=== PATIENT | female | born 1935 | race Caucasian/White ===

== ENCOUNTER 2021-09-25 08:40 | Inpatient (IN) ==
[2021-09-25] MEDS ORDERED: Nitroglycerin 1 INCH/GM PACKET TP ONE (09:13)
[2021-09-25 09:57] LABS: Basophils # 0.1 K/mcL (0.0-0.2); Basophils % 0.6 %; Eosinophils # 0.3 K/mcL (0.0-0.6); Eosinophils % 3.9 %; Hematocrit 38.8 % (35.3-44.9); Hemoglobin 12.8 g/dL (11.5-15.4); Immature Granulocytes % 0.2 % (0-4); Lymphocytes % 11.7 %; Mean Corpuscular Hemoglobin 30.3 pg (28.0-33.3); Mean Corpuscular Volume 91.9 fL (83.0-100.0); Mean Platelet Volume 10.3 fL (9.4-12.4); Monocytes # 0.6 K/mcL (0.0-1.3); Monocytes % 7.7 %; Neutrophils # 6.2 K/mcL (1.6-8.9); Platelet Count 168 K/mcL (140-400); Red Blood Count 4.22 M/mcL (3.82-4.97); Red Cell Distribution Width 13.1 % (11.5-14.5); Segmented Neutrophils % 75.9 %; White Blood Count 8.2 K/mcL (4.3-11.1)
[2021-09-25 10:19] LABS: Calcium 10.1 mg/dL (8.6-10.3); Potassium 3.5 mEq/L (3.5-5.1); Troponin I 2.01 ng/mL (< 0.04)
[2021-09-25] MEDS ORDERED: *HR* Heparin 5,000 UNIT/ML VIAL IVP ONE (10:47)
[2021-09-25] MEDS ORDERED: *HR* Heparin 5,000 UNIT/ML VIAL IVP PRN ×2 (10:47)
[2021-09-25] MEDS ORDERED: Heparin 25,000UNIT/250ML 1/2NS 25,000 UNIT/250 ML IV.SOLN IVC SCH (11:00)
[2021-09-25 11:31] LABS: Heparin anti-factor XA UFH < 0.04 IU/mL (0.30-0.70); INR 1.1; Prothrombin Time 12.3 Seconds (9.4-12.1)
[2021-09-25] MEDS ORDERED: Acetaminophen 325 MG TABLET PO PRN (11:43)
[2021-09-25] MEDS ORDERED: Naloxone 0.4 MG/ML INJ IVP PRN (11:43)
[2021-09-25] MEDS ORDERED: Aspirin Enteric Coated 325 MG Tablet PO ONE (13:21)
[2021-09-25] MEDS ORDERED: Perflutren Lipid Microsphere 1.3 ML in 0.9 % Sodium Chloride 8.7 ML IVP PRN ×2 (13:46→13:47)
[2021-09-25] MEDS ORDERED: *HR* FentaNYL (PF) 100 MCG/2 ML VIAL ONE ×2 (14:38→19:22)
[2021-09-25] MEDS ORDERED: *HR* Midazolam HCl 2 MG/2 ML VIAL ONE (14:38)
[2021-09-25] MEDS ORDERED: *HR* Ticagrelor 90 MG TABLET ONE (15:00)
[2021-09-25] MEDS ORDERED: *HR* Bivalirudin 250 MG VIAL IVC ONE (15:01)
[2021-09-25] MEDS ORDERED: 0.9 % Sodium Chloride 2,000 ML ONE (15:33)
[2021-09-25] MEDS ORDERED: Heparin 1,000 UNITS/500 mL 500 ML ONE (15:34)
[2021-09-25] MEDS ORDERED: Nitroglycerin 1,000 MCG/5 ML VIAL IV ONE (15:34)
[2021-09-25] MEDS ORDERED: Iopamidol - 370 200 ML INFUS..BTL ONE (15:34)
[2021-09-25] MEDS ORDERED: *HR* Heparin 10,000 UNIT/10 ML VIAL ONE (15:34)
[2021-09-25] MEDS ORDERED: Nitroglycerin 0.4 MG TAB.SUBL SL PRN (15:44)
[2021-09-25] MEDS ORDERED: 0.9 % Sodium Chloride 1,000 ML IVC SCH (15:45)
[2021-09-25] MEDS: *HR* Ticagrelor 90 MG TABLET PO SCH (20:45)
[2021-09-25] MEDS: Metoprolol XL (24 HR) Succ 25 MG TAB.ER.24H PO SCH (20:45)
[2021-09-25] MEDS ORDERED: *HR* Metoprolol 5 MG/5 ML VIAL IVP ONE (21:49)
[2021-09-26 02:37] LABS: Basophils % 0.6 %; Eosinophils # 0.3 K/mcL (0.0-0.6); Eosinophils % 4.8 %; Hematocrit 35.2 % (35.3-44.9); Hemoglobin 11.6 g/dL (11.5-15.4); Immature Granulocytes % 0.3 % (0-4); Lymphocytes # 0.8 K/mcL (0.6-4.6); Lymphocytes % 12.6 %; Mean Corpuscular Hemoglobin 29.8 pg (28.0-33.3); Mean Corpuscular Volume 90.5 fL (83.0-100.0); Mean Platelet Volume 10.7 fL (9.4-12.4); Monocytes # 0.7 K/mcL (0.0-1.3); Monocytes % 10.9 %; Neutrophils # 4.6 K/mcL (1.6-8.9); Platelet Count 170 K/mcL (140-400); Red Blood Count 3.89 M/mcL (3.82-4.97); Segmented Neutrophils % 70.8 %; White Blood Count 6.5 K/mcL (4.3-11.1)
[2021-09-26 03:07] LABS: BUN/Creatinine Ratio 11 (6-26); Blood Urea Nitrogen 10 mg/dL (8-23); Calcium 9.2 mg/dL (8.6-10.3); Carbon Dioxide 22 mEq/L (23-29); Chloride 106 mEq/L (98-107); Chol/HDL Ratio 2.4 (0-4.9); Cholesterol 107 mg/dL (< 200); Glucose 90 mg/dL (70-105); HDL Cholesterol 44 mg/dL (40-59); LDL Cholesterol,Calculated 37 mg/dL (< 100); Osmolality,Calculated 285 (280-300); Potassium 3.3 mEq/L (3.5-5.1); Sodium 138 mEq/L (136-145); Triglycerides 131 mg/dL (< 150); Troponin I 1.44 ng/mL (< 0.04); eGFR For African Americans > 60 (> 60); eGFR For Non-African Americans 57 (> 60)
[2021-09-26 03:09] LABS: Estimated Average Glucose 128 mg/dl; Hemoglobin A1C 6.1 %
[2021-09-26] MEDS: Aspirin Enteric Coated 81 MG Tablet PO SCH (08:17)
[2021-09-26] MEDS: *HR* Ticagrelor 90 MG TABLET PO SCH ×2 (08:17→20:49)
[2021-09-26] MEDS: Metoprolol XL (24 HR) Succ 25 MG TAB.ER.24H PO SCH (08:17)
[2021-09-26] MEDS: Multivit/Ca/Min/Fe/FA 1 TAB TABLET PO SCH (08:17)
[2021-09-26] MEDS ORDERED: Isosorbide MONOnitrate (24 HR) 60 MG TAB.ER.24H PO SCH (09:00)
[2021-09-26] MEDS ORDERED: amLODIPine 5 MG TABLET PO SCH (09:00)
[2021-09-26] MEDS ORDERED: Metoprolol XL (24 HR) Succ 25 MG TAB.ER.24H PO ONE (10:17)
[2021-09-26] MEDS: lisinopriL 5 MG TABLET PO SCH (11:01)
[2021-09-26] MEDS ORDERED: *HR* Enoxaparin 40 MG/0.4 ML SYRINGE SQ ONE (15:25)
[2021-09-26] MEDS ORDERED: *HR* Heparin 5,000 UNIT/ML VIAL SQ SCH (18:00)
[2021-09-27] MEDS ORDERED: Metoprolol XL (24 HR) Succ 25 MG TAB.ER.24H PO SCH (06:30)
[2021-09-27 07:11] VITALS: BP 159/34; PULSE 73; TEMP 97.9; O2SAT 98
[2021-09-27] MEDS: Aspirin Enteric Coated 81 MG Tablet PO SCH (08:44)
[2021-09-27] MEDS: lisinopriL 5 MG TABLET PO SCH (08:44)
[2021-09-27] MEDS: *HR* Ticagrelor 90 MG TABLET PO SCH (08:44)
[2021-09-27] MEDS: Multivit/Ca/Min/Fe/FA 1 TAB TABLET PO SCH (08:45)
[2021-09-27] MEDS ORDERED: lisinopriL 5 MG TABLET PO ONE (08:48)
[2021-09-28] MEDS ORDERED: lisinopriL 5 MG TABLET PO SCH (09:00)
== END 2021-09-27 10:00 | disposition home or self-care (01) | DRG 247 ==
LOC: EMEROOARM 08:40 → 2NENU 08:40 → SUATTDRO 19:03
PROVIDERS: ADMIT Internal Medicine; ATTEND Internal Medicine

== ENCOUNTER 2021-12-08 23:00 | Observation (INO) ==
[2021-12-09 02:38] LABS: Basophils # 0.1 K/mcL (0.0-0.2); Basophils % 0.7 %; Eosinophils # 0.4 K/mcL (0.0-0.6); Eosinophils % 4.9 %; Hematocrit 33.1 % (35.3-44.9); Hemoglobin 10.5 g/dL (11.5-15.4); Immature Granulocytes % 0.2 % (0-4); Lymphocytes # 1.4 K/mcL (0.6-4.6); Lymphocytes % 15.8 %; Mean Corpuscular HGB Conc 31.7 g/dL (31.6-35.5); Mean Corpuscular Hemoglobin 29.9 pg (28.0-33.3); Mean Corpuscular Volume 94.3 fL (83.0-100.0); Mean Platelet Volume 10.9 fL (9.4-12.4); Monocytes # 0.7 K/mcL (0.0-1.3); Monocytes % 8.4 %; Platelet Count 158 K/mcL (140-400); Red Blood Count 3.51 M/mcL (3.82-4.97); Red Cell Distribution Width 13.4 % (11.5-14.5); White Blood Count 8.6 K/mcL (4.3-11.1)
[2021-12-09 03:10] LABS: Calcium 9.5 mg/dL (8.6-10.3); Potassium 4.1 mEq/L (3.5-5.1); Troponin I 0.06 ng/mL (< 0.04)
[2021-12-09] MEDS ORDERED: Aspirin 325 MG TABLET PO ONE (03:12)
[2021-12-09] MEDS ORDERED: Nitroglycerin 0.4 MG TAB.SUBL SL PRN (03:12)
[2021-12-09] MEDS ORDERED: Naloxone 0.4 MG/ML INJ IVP PRN (06:05)
[2021-12-09] MEDS ORDERED: Ondansetron 4 MG/2 ML VIAL IVP PRN (06:05)
[2021-12-09 06:06] LABS: INR 1.1; Prothrombin Time 12.5 Seconds (9.4-12.1)
[2021-12-09] MEDS ORDERED: *HR* Ticagrelor 90 MG TABLET PO SCH (13:00)
[2021-12-09] MEDS: Metoprolol XL (24 HR) Succ 50 MG TAB.ER.24H PO SCH ×3 (13:17→13:52)
[2021-12-09] MEDS: lisinopriL 5 MG TABLET PO SCH (13:17)
[2021-12-09] MEDS: Aspirin Enteric Coated 81 MG Tablet PO SCH (13:17)
[2021-12-09] MEDS ORDERED: *HR* Heparin 5,000 UNIT/ML VIAL IVP PRN ×2 (13:46)
[2021-12-09] MEDS ORDERED: *HR* Heparin 5,000 UNIT/ML VIAL IVP ONE (13:46)
[2021-12-09] MEDS ORDERED: Heparin 25,000UNIT/250ML 1/2NS 25,000 UNIT/250 ML IV.SOLN IVC SCH (14:00)
[2021-12-09] MEDS ORDERED: Furosemide 20 MG/2 ML VIAL IVP ONE (14:15)
[2021-12-09 14:20] LABS: Hematocrit 37.3 % (35.3-44.9); Hemoglobin 11.8 g/dL (11.5-15.4); Mean Corpuscular HGB Conc 31.6 g/dL (31.6-35.5); Mean Corpuscular Hemoglobin 30.8 pg (28.0-33.3); Mean Corpuscular Volume 97.4 fL (83.0-100.0); Mean Platelet Volume 10.7 fL (9.4-12.4); Platelet Count 162 K/mcL (140-400); Red Blood Count 3.83 M/mcL (3.82-4.97); Red Cell Distribution Width 13.5 % (11.5-14.5); White Blood Count 7.3 K/mcL (4.3-11.1)
[2021-12-09 14:26] LABS: Heparin anti-factor XA UFH 0.07 IU/mL (0.30-0.70); INR 1.1
[2021-12-10 02:41] LABS: Basophils # 0.1 K/mcL (0.0-0.2); Basophils % 0.9 %; Eosinophils # 0.5 K/mcL (0.0-0.6); Eosinophils % 8.7 %; Hematocrit 31.8 % (35.3-44.9); Hemoglobin 10.2 g/dL (11.5-15.4); Immature Granulocytes % 0.2 % (0-4); Lymphocytes # 1.2 K/mcL (0.6-4.6); Lymphocytes % 20.8 %; Mean Corpuscular HGB Conc 32.1 g/dL (31.6-35.5); Mean Corpuscular Volume 93.5 fL (83.0-100.0); Mean Platelet Volume 10.7 fL (9.4-12.4); Monocytes # 0.7 K/mcL (0.0-1.3); Monocytes % 12.2 %; Neutrophils # 3.3 K/mcL (1.6-8.9); Platelet Count 154 K/mcL (140-400); Red Cell Distribution Width 13.3 % (11.5-14.5); Segmented Neutrophils % 57.2 %; White Blood Count 5.7 K/mcL (4.3-11.1)
[2021-12-10 03:02] LABS: Albumin 3.8 g/dL (3.5-5.7); Albumin/Globulin Ratio 1.5 (1.1-2.2); Bilirubin,Total 0.8 mg/dL (0.3-1.0); Calcium 9.1 mg/dL (8.6-10.3); Globulin 2.6 g/dL (2.4-3.5); Potassium 3.7 mEq/L (3.5-5.1); Total Protein 6.4 g/dL (6.4-8.9)
[2021-12-10 03:08] LABS: Thyroid Stimulating Hormone 4.366 mcIU/mL (0.340-5.600)
[2021-12-10 06:31] LABS: Troponin I 0.06 ng/mL (< 0.04)
[2021-12-10 06:53] VITALS: TEMP 97.4
[2021-12-10] MEDS: lisinopriL 5 MG TABLET PO SCH (09:02)
[2021-12-10] MEDS: Aspirin Enteric Coated 81 MG Tablet PO SCH (09:03)
[2021-12-10] MEDS: Metoprolol XL (24 HR) Succ 50 MG TAB.ER.24H PO SCH (09:03)
[2021-12-10 10:41] VITALS: PULSE 74
[2021-12-10 11:31] VITALS: BP 152/99; O2SAT 99
== END 2021-12-10 13:40 | disposition home or self-care (01) ==
LOC: EMEROOARM 23:00 → 3NENU 23:00 → SUATTDRO 12-09 06:13 → 3NENU 12-09 06:51
PROVIDERS: ADMIT Internal Medicine; ATTEND Family Medicine

== ENCOUNTER 2021-12-18 08:01 | Inpatient (IN) ==
[2021-12-18] MEDS ORDERED: 0.9 % Sodium Chloride 2,000 ML ONE ×2 (08:27→10:03)
[2021-12-18] MEDS ORDERED: Vancomycin 1,000 MG VIAL ONE (08:27)
[2021-12-18] MEDS ORDERED: D5% in Water 100 ML ONE (08:28)
[2021-12-18] MEDS ORDERED: 0.9 % Sodium Chloride 250 ML ONE (08:28)
[2021-12-18] MEDS ORDERED: CeFAZolin Syr 2,000MG/20 ML 2,000 MG/20 ML SYRINGE IVPB ONE (09:08)
[2021-12-18] MEDS ORDERED: Buckersberg's Blood Cardioplegia PF ONE (09:30)
[2021-12-18] MEDS ORDERED: Norepinephrine 4 MG in 0.9 % Sodium Chloride 250 ML IVC PRN (09:30)
[2021-12-18] MEDS ORDERED: Heparin 15,000 UNIT in 0.9 % Sodium Chloride 500 ML IR ONE (09:30)
[2021-12-18] MEDS ORDERED: del Nido Cardioplegia Solution PF ONE ×2 (09:30)
[2021-12-18] MEDS ORDERED: Protamine Sulfate 50 MG/5 ML VIAL IVP ONE (10:03)
[2021-12-18] MEDS ORDERED: Iopamidol - 370 200 ML INFUS..BTL ONE (10:03)
[2021-12-18] MEDS ORDERED: *HR* Heparin 10,000 UNIT/10 ML VIAL ONE (10:03)
[2021-12-18] MEDS ORDERED: Heparin 1,000 UNITS/500 mL 1,500 ML ONE (10:03)
[2021-12-18] MEDS ORDERED: *HR* FentaNYL (PF) 100 MCG/2 ML VIAL ONE (10:18)
[2021-12-18] MEDS ORDERED: Heparin 1,000 UNITS/500 mL 500 ML ONE (11:22)
[2021-12-18] MEDS ORDERED: Lidocaine -MPF 2% 5 ML VIAL SQ ONE (15:00)
[2021-12-18] MEDS ORDERED: *HR* Propofol 500 MG/50 ML BOTTLE IVP ONE (15:00)
[2021-12-18] MEDS ORDERED: Metoprolol XL (24 HR) Succ 50 MG TAB.ER.24H PO ONE (15:24)
[2021-12-18] MEDS ORDERED: Ondansetron 4 MG/2 ML VIAL IVP ONE (17:29)
[2021-12-18] MEDS ORDERED: Ondansetron 4 MG/2 ML VIAL IVP PRN (18:26)
[2021-12-18 19:08] LABS: INR 1.1; Prothrombin Time 12.1 Seconds (9.4-12.1)
[2021-12-18 19:09] LABS: Basophils % 0.4 %; Eosinophils # 0.2 K/mcL (0.0-0.6); Eosinophils % 1.9 %; Hematocrit 37.3 % (35.3-44.9); Hemoglobin 11.9 g/dL (11.5-15.4); Immature Granulocytes % 0.2 % (0-4); Lymphocytes # 0.8 K/mcL (0.6-4.6); Lymphocytes % 6.9 %; Mean Corpuscular HGB Conc 31.9 g/dL (31.6-35.5); Mean Platelet Volume 10.5 fL (9.4-12.4); Monocytes # 0.7 K/mcL (0.0-1.3); Monocytes % 6.7 %; Neutrophils # 9.1 K/mcL (1.6-8.9); Platelet Count 130 K/mcL (140-400); Red Blood Count 3.97 M/mcL (3.82-4.97); Red Cell Distribution Width 13.2 % (11.5-14.5); Segmented Neutrophils % 83.9 %; White Blood Count 10.8 K/mcL (4.3-11.1)
[2021-12-18 19:27] LABS: Activated Partial Thrombo Time 19.4 Seconds (26.0-36.0); Calcium 9.7 mg/dL (8.6-10.3); Potassium 3.8 mEq/L (3.5-5.1)
[2021-12-18] MEDS ORDERED: cloNIDine HCL 0.1 MG TABLET PO PRN (22:19)
[2021-12-19] MEDS: Chlorhexidine Rinse 15 ML MOUTHWASH MM SCH ×2 (01:47→01:49)
[2021-12-19 03:43] LABS: Basophils % 0.5 %; Eosinophils % 0.1 %; Hematocrit 31.1 % (35.3-44.9); Immature Granulocytes % 0.2 % (0-4); Lymphocytes # 0.7 K/mcL (0.6-4.6); Lymphocytes % 7.9 %; Mean Corpuscular HGB Conc 31.5 g/dL (31.6-35.5); Mean Corpuscular Hemoglobin 29.5 pg (28.0-33.3); Mean Corpuscular Volume 93.7 fL (83.0-100.0); Monocytes # 0.8 K/mcL (0.0-1.3); Monocytes % 8.8 %; Neutrophils # 7.1 K/mcL (1.6-8.9); Platelet Count 149 K/mcL (140-400); Red Blood Count 3.32 M/mcL (3.82-4.97); Red Cell Distribution Width 13.3 % (11.5-14.5); Segmented Neutrophils % 82.5 %; White Blood Count 8.6 K/mcL (4.3-11.1)
[2021-12-19 03:47] LABS: Hemoglobin 9.8 g/dL (11.5-15.4)
[2021-12-19 03:50] LABS: INR 1.2; Prothrombin Time 13.2 Seconds (9.4-12.1)
[2021-12-19 03:57] LABS: Calcium 9.2 mg/dL (8.6-10.3); Potassium 3.9 mEq/L (3.5-5.1)
[2021-12-19 08:14] VITALS: TEMP 98.1
[2021-12-19] MEDS ORDERED: Aspirin Enteric Coated 81 MG Tablet PO SCH (09:00)
[2021-12-19] MEDS ORDERED: Metoprolol XL (24 HR) Succ 50 MG TAB.ER.24H PO SCH (09:00)
[2021-12-19 11:32] VITALS: BP 132/43; PULSE 68; O2SAT 97
== END 2021-12-19 13:31 | disposition home or self-care (01) | DRG 267 ==
LOC: INVDIALAB 08:01 → 2NNU 16:18
PROVIDERS: ADMIT Thoracic Surgery (Cardiothoracic Vascular Surgery); ATTEND Thoracic Surgery (Cardiothoracic Vascular Surgery)